=== PATIENT | male | born 1990 | race Caucasian/White ===

== ENCOUNTER 2021-04-28 01:27 | Emergency (ER) | payer OTHER ==
[2021-04-28 01:37] VITALS: TEMP 98
[2021-04-28 06:37] VITALS: BP 121/86; PULSE 64; RESP 16
--- NOTE | 2021-04-28 06:54 | ED ---
Overdose HPI - General Chief Complaint: Overdose Stated Complaint: heroin use Time Seen by Provider: 04/28/21 01:31 Source: patient, EMS Mode of arrival: EMS Limitations: no limitations - Related Data Allergies Allergy/AdvReac Type Severity Reaction Status Date / Time No Known Allergies Allergy Verified 04/28/21 01:37 Review of Systems ROS Statement: Those systems with pertinent positive or pertinent negative responses have been documented in the HPI. ROS Other: All systems not noted in ROS Statement are negative. Past Medical History Additional Past Medical History / Comment(s): Missing part of left lung History of Any Multi-Drug Resistant Organisms: None Reported Additional Past Surgical History / Comment(s): Lung Resection Left Past Psychological History: Anxiety, Depression Smoking Status: Current every day smoker Past Alcohol Use History: Rare Past Drug Use History: Heroin General Exam Limitations: no limitations Course Vital Signs 04/28/21 04/28/21 04/28/21 01:28 02:00 02:36 Temperature 98 F Pulse Rate 74 71 75 Respiratory 16 18 18 Rate Blood Pressure 126/93 132/98 114/80 O2 Sat by Pulse 99 100 100 Oximetry 04/28/21 04/28/21 04/28/21 03:36 04:36 06:37 Temperature Pulse Rate 76 69 64 Respiratory 18 18 16 Rate Blood Pressure 122/94 122/96 121/86 O2 Sat by Pulse 100 100 100 Oximetry Disposition Clinical Impression: Accidental drug overdose Disposition: HOME SELF-CARE Condition: Good Instructions (If sedation given, give patient instructions): Adult Overdose (ED) Is patient prescribed a controlled substance at d/c from ED?: No Referrals: None,Stated [Primary Care Provider] - 1-2 days
== END 2021-04-28 07:13 | disposition home or self-care (01) ==
LOC: EC 01:27
DX: T40.1X1A Poisoning by heroin, accidental (unintentional), initial encounter (principal); F32.9 Major depressive disorder, single episode, unspecified; F41.9 Anxiety disorder, unspecified; F17.200 Nicotine dependence, unspecified, uncomplicated
CPT/HCPCS: 99284

== ENCOUNTER 2021-05-13 13:03 | Emergency (ER) | payer OTHER ==
--- NOTE | 2021-05-13 13:11 | ED ---
General Adult HPI - General Stated complaint: Overdose Time Seen by Provider: 05/13/21 13:03 Source: patient, RN notes reviewed, old records reviewed - History of Present Illness Initial comments: This is a 31-year-old male who presents emergency Department after being found unresponsive in a Alley. When EMS arrived patient was able to be aroused was some mild physical stimulation. Patient was alert and oriented 3 but he did admit to a heroin. Patient states she also took methadone yesterday. Patient denies any other drug use. Patient denies any alcohol use. Patient denies any physical complaints currently patient denies headache patient denies numbness weakness. Patient denies any trauma. Patient denies any chest pain difficulty breathing shortest breath. Patient denies any recent fever chills or cough per patient denies abdominal pain. - Related Data Home Medications Medication Instructions Recorded Confirmed Buprenorphine HCl/Naloxone HCl 1 tab SL TID 05/13/21 05/13/21 [Zubsolv 5.7-1.4 mg Tablet Sl] Allergies Allergy/AdvReac Type Severity Reaction Status Date / Time No Known Allergies Allergy Verified 05/13/21 13:57 Review of Systems ROS Statement: Those systems with pertinent positive or pertinent negative responses have been documented in the HPI. ROS Other: All systems not noted in ROS Statement are negative. Past Medical History Additional Past Medical History / Comment(s): Missing part of left lung History of Any Multi-Drug Resistant Organisms: None Reported Additional Past Surgical History / Comment(s): Lung Resection Left Past Psychological History: Anxiety, Depression Smoking Status: Current every day smoker Past Alcohol Use History: Rare Past Drug Use History: Heroin General Exam - General Exam Comments Initial Comments: GENERAL: Patient is well-developed and well-nourished. Patient is nontoxic and well- hydrated and is in no acute distress. Patient's tired but easily arousable and answers all questions accurately ENT: Neck is soft and supple. No significant lymphadenopathy is noted. Oropharynx is clear. Moist mucous membranes. Neck has full range of motion without eliciting any pain. EYES: The sclera were anicteric and conjunctiva were pink and moist. Extraocular movements were intact and pupils were equal round and reactive to light. Eyelids were unremarkable. PULMONARY: Unlabored respirations. Good breath sounds bilaterally. No audible rales rhon chi or wheezing was noted. CARDIOVASCULAR: There is a regular rate and rhythm without any murmurs gallops or rubs. ABDOMEN: Soft and nontender with normal bowel sounds. SKIN: Skin is clear with no lesions or rashes and otherwise unremarkable. NEUROLOGIC: Patient is alert and oriented x3. Cranial nerves II through XII are grossly intact. Motor and sensory are also intact. Normal speech, volume and content. Symmetrical smile. MUSCULOSKELETAL: Normal extremities with adequate strength and full range of motion. LYMPHATICS: No significant lymphadenopathy is noted PSYCHIATRIC: Normal psychiatric evaluation. Course Vital Signs 05/13/21 05/13/21 05/13/21 13:08 13:14 13:30 Temperature 97.8 F Pulse Rate 77 92 67 Respiratory 16 14 9 L Rate Blood Pressure 124/93 124/93 O2 Sat by Pulse 97 98 97 Oximetry 05/13/21 05/13/21 14:00 16:18 Temperature Pulse Rate 75 78 Respiratory 11 L 16 Rate Blood Pressure 130/81 122/93 O2 Sat by Pulse 98 98 Oximetry Medical Decision Making - Medical Decision Making Patient's drug screen came back and it was positive for methadone and opiates methamphetamine. Patient was alert and oriented 4 the whole time in the emergency department and he insisted he did not do any methadone today he did that yesterday. - Lab Data Lab Results 05/13/21 Range/Units 15:47 Urine Opiates Screen Detected H (NotDetected) Ur Oxycodone Screen Not Detected (NotDetected) Urine Methadone Screen Detected H (NotDetected) Ur Propoxyphene Screen Not Detected (NotDetected) Ur Barbiturates Screen Not Detected (NotDetected) U Tricyclic Antidepress Not Detected (NotDetected) Ur Phencyclidine Scrn Not Detected (NotDetected) Ur Amphetamines Screen Detected H (NotDetected) U Methamphetamines Scrn Detected H (NotDetected) U Benzodiazepines Scrn Not Detected (NotDetected) Urine Cocaine Screen Detected H (NotDetected) U Marijuana (THC) Screen Detected H (NotDetected) Disposition Clinical Impression: Methamphetamine abuse, Opiate overdose Disposition: Left Against Medical Advice Is patient prescribed a controlled substance at d/c from ED?: No Referrals: None,Stated [Primary Care Provider] - 1-2 days Time of Disposition: 16:27
[2021-05-13 13:12] VITALS: TEMP 97.8
[2021-05-13 16:13] LABS: Amphetamine Screen,Urine Detected (NotDetected); Barbiturate Screen,Urine Not Detected (NotDetected); Benzodiazepines Screen,Urine Not Detected (NotDetected); Cocaine Screen,Urine Detected (NotDetected); Methadone Screen, Urine Detected (NotDetected); Opiate Screen,Urine Detected (NotDetected); Oxycodone Screen, Urine Not Detected (NotDetected); Phencyclidine Screen,Urine Not Detected (NotDetected); Tricyclic Antidepressant,Urine Not Detected (NotDetected); Urn Cannabinoid Scrn Detected (NotDetected)
[2021-05-13 16:20] VITALS: BP 122/93; PULSE 78; RESP 16
== END 2021-05-13 16:20 | disposition left against medical advice (07) ==
LOC: EC 13:03
DX: T40.601A Poisoning by unspecified narcotics, accidental (unintentional), initial encounter (principal); F15.10 Other stimulant abuse, uncomplicated; F17.200 Nicotine dependence, unspecified, uncomplicated
CPT/HCPCS: 80306; 82075; 99284

== ENCOUNTER 2021-06-11 07:14 | Emergency (ER) | payer OTHER ==
--- NOTE | 2021-06-11 07:38 | ED ---
General Adult HPI - General Chief complaint: Fall Stated complaint: lethargic Time Seen by Provider: 06/11/21 07:15 Source: patient, EMS, RN notes reviewed, old records reviewed Mode of arrival: EMS - History of Present Illness Initial comments: This is a 31-year-old male who is a heroin addict. Patient was found in the yard this morning with no complaints other than a little scalp tenderness. Patient states he thinks he might a fall and but he doesn't remember. Patient denies any neck pain patient denies numbness weakness. Patient is chest pain difficulty breathing shortness of breath per patient abdominal pain. Patient denies any recent fever chills or cough per patient denies any nausea vomiting. Patient states the last time he did heroin was somewhere around midnight last night - Related Data Home Medications Medication Instructions Recorded Confirmed No Known Home Medications 06/11/21 06/11/21 Allergies Allergy/AdvReac Type Severity Reaction Status Date / Time No Known Allergies Allergy Verified 06/11/21 08:23 Review of Systems ROS Statement: Those systems with pertinent positive or pertinent negative responses have been documented in the HPI. ROS Other: All systems not noted in ROS Statement are negative. 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 Organisms: None Reported Past Surgical History: No Surgical Hx Reported Additional Past Surgical History / Comment(s): Lung Resection Left Past Psychological History: Anxiety, Depression Smoking Status: Current every day smoker Past Alcohol Use History: Rare Past Drug Use History: Heroin General Exam - General Exam Comments Initial Comments: GENERAL: Patient is well-developed and well-nourished. Patient is nontoxic and well- hydrated and is in no acute distress. Patient has a area on his scalp is mildly tender. There is a superficial abrasion on the right lateral aspect of his forehead ENT: Neck is soft and supple. No significant lymphadenopathy is noted. Oropharynx is clear. Moist mucous membranes. Neck has full range of motion without eliciting any pain. EYES: The sclera were anicteric and conjunctiva were pink and moist. Extraocular movements were intact and pupils were equal round and reactive to light. Eyelids were unremarkable. PULMONARY: Unlabored respirations. Good breath sounds bilaterally. No audible rales rhonchi or wheezing was noted. CARDIOVASCULAR: There is a regular rate and rhythm without any murmurs gallops or rubs. ABDOMEN: Soft and nontender with normal bowel sounds. No palpable organomegaly was noted. There is no palpable pulsatile mass. SKIN: Skin is clear with no lesions or rashes and otherwise unremarkable. NEUROLOGIC: Patient is alert and oriented x3. Cranial nerves II through XII are grossly intact. Motor and sensory are also intact. Normal speech, volume and content. Symmetrical smile. MUSCULOSKELETAL: Normal extremities with adequate strength and full range of motion. LYMPHATICS: No significant lymphadenopathy is noted PSYCHIATRIC: Normal psychiatric evaluation. Course Vital Signs 06/11/21 06/11/21 07:15 08:06 Temperature 97.8 F Pulse Rate 68 75 Respiratory 16 18 Rate Blood Pressure 125/86 127/92 O2 Sat by Pulse 98 98 Oximetry Medical Decision Making - Medical Decision Making CT brain and C-spine are both normal. Patient was eating a sandwich and he was alert and oriented 3 who is very tired. Disposition Clinical Impression: Fall, Scalp contusion, Fall, Heroin abuse Disposition: HOME SELF-CARE Condition: Good Instructions (If sedation given, give patient instructions): Fall Prevention (ED), Opioid Use Disorder (ED) Is patient prescribed a controlled substance at d/c from ED?: No Referrals: None,Stated [Primary Care Provider] - 1-2 days Time of Disposition: 09:55
--- NOTE | 2021-06-11 07:57 | CT ---
EXAMINATION TYPE: CT brain gina donato DATE OF EXAM: 06/11/2021 COMPARISON: None HISTORY: Trauma? Possible fall. Altered mental status. Poor historian. CT DLP: 1180.[address] Brain: Unenhanced CT of the brain was performed. The ventricles, basal cisterns and sulci overlying the cerebral convexities demonstrate a normal appe arance. There is no evidence for intracranial hemorrhage or sulcal effacement. No mass effects are seen. If symptoms persist consider MRI. Osseous calvarium is intact. IMPRESSION: No acute intracranial process CT Cervical Spine: Unenhanced CT of the cervical spine was performed with bone and soft tissue window settings submitted . Coronal and sagittal reconstruction is obtained. There is normal alignment and prevertebral soft tissues. I do not see evidence for fracture or sublu xation. No significant degenerative changes are present. The lung apices are clear. IMPRESSION: No evidence for acute fracture or subluxation of the cervical spine.
[2021-06-11 10:31] VITALS: BP 133/94; PULSE 70; RESP 20; TEMP 98.6
== END 2021-06-11 10:31 | disposition home or self-care (01) ==
LOC: EC 07:14
DX: S00.03XA Contusion of scalp, initial encounter (principal); F11.10 Opioid abuse, uncomplicated; F17.200 Nicotine dependence, unspecified, uncomplicated; F41.9 Anxiety disorder, unspecified; F32.9 Major depressive disorder, single episode, unspecified; W19.XXXA Unspecified fall, initial encounter
CPT/HCPCS: 70450; 72125; 99285

== ENCOUNTER 2021-07-02 19:26 | Observation (INO) | payer OTHER ==
[2021-07-02] MEDS ORDERED: VANCOMYCIN 1,250 MG in SODIUM CHLORIDE 0.9% 250 ML IVPB STA (19:47)
--- NOTE | 2021-07-02 19:53 | ED ---
General Adult HPI - General Source: patient, EMS, RN notes reviewed, old records reviewed Mode of arrival: EMS <Danis Welsh - Last Filed: 07/02/21 20:44> <Danis Emerson - Last Filed: 07/03/21 00:44> - General Chief complaint: Recheck/Abnormal Lab/Rx Stated complaint: Overdose Time Seen by Provider: 07/02/21 19:30 - History of Present Illness Initial comments: This is a 31-year-old male who is brought in by EMS after police found him nearly unresponsive. When they got to him he was able to answer a few questions though he was significantly obtunded his eyes were pinpoint but he did admit to doing heroin. Because patient was still able to respond and his vitals are stable Narcan was not given to the patient. Patient is able to answer all of my cautions currently has no complaints he does state he has 2 sores on one on each hand on the dorsal aspect patient states he's had before and they usually just go away. I told the patient he might have to stay to get antibiotics he stated he would not stay overnight. Patient denied any headache patient denies chest pain patient difficulty breathing shortest breath per patient denied any nausea vomiting. Patient denies fever chills or cough. (Danis Welsh) - Related Data Previous Rx's Medication Instructions Recorded Cephalexin [Keflex] 500 mg PO Q6HR #28 cap 07/02/21 Sulfamethox-Tmp 800-160Mg [Bactrim 1 each PO Q12HR #20 tab 07/02/21 DS 800-160 mg] Allergies Allergy/AdvReac Type Severity Reaction Status Date / Time No Known Allergies Allergy Verified 07/02/21 22:52 Review of Systems ROS Other: All systems not noted in ROS Statement are negative. <Danis Welsh - Last Filed: 07/02/21 20:44> ROS Other: All systems not noted in ROS Statement are negative. <Danis Emerson - Last Filed: 07/03/21 00:44> ROS Statement: Those systems with pertinent positive or pertinent negative responses have been documented in the HPI. 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 Organisms: None Reported Past Surgical History: No Surgical Hx Reported Additional Past Surgical History / Comment(s): Lung Resection Left Past Psychological History: Anxiety, Depression Smoking Status: Current every day smoker Past Alcohol Use History: Rare Past Drug Use History: Heroin <Danis Welsh - Last Filed: 07/02/21 20:44> General Exam <Danis Welsh - Last Filed: 07/02/21 20:44> General appearance: alert, in no apparent distress Head exam: Present: atraumatic, normocephalic, normal inspection Eye exam: Present: normal appearance, PERRL, EOMI. Absent: scleral icterus, conjunctival injection, periorbital swelling ENT exam: Present: normal exam, mucous membranes moist Neck exam: Present: normal inspection. Absent: tenderness, meningismus, lymphadenopathy Respiratory exam: Present: normal lung sounds bilaterally. Absent: respiratory distress, wheezes, rales, rhonchi, stridor Cardiovascular Exam: Present: regular rate, normal rhythm, normal heart sounds. Absent: systolic murmur, diastolic murmur, rubs, gallop, clicks GI/Abdominal exam: Present: soft, normal bowel sounds. Absent: distended, tende rness, guarding, rebound, rigid Extremities exam: Present: normal inspection, full ROM, normal capillary refill. Absent: tenderness, pedal edema, joint swelling, calf tenderness Back exam: Present: normal inspection Neurological exam: Present: alert, oriented X3, CN II-XII intact Psychiatric exam: Present: normal affect, normal mood Skin exam: Present: warm, dry, intact, normal color. Absent: rash <Danis Emerson - Last Filed: 07/03/21 00:44> - General Exam Comments Initial Comments: GENERAL: Patient is well-developed and well-nourished. Patient is nontoxic and well- hydrated and is in no acute distress. Patient is lethargic but arousable. Patient is able to answer all questions accurately but he falls right to sleep when he stopped talking to him. ENT: Neck is soft and supple. No significant lymphadenopathy is noted. Oropharynx is clear. Moist mucous membranes. Neck has full range of motion without eliciting any pain. EYES: The sclera were anicteric and conjunctiva were pink and moist. Extraocular movements were intact and pupils 2+ were pinpoint. Eyelids were unremarkable. PULMONARY: Unlabored respirations. Good breath sounds bilaterally. No audible rales rhonchi or wheezing was noted. CARDIOVASCULAR: There is a regular rate and rhythm without any murmurs gallops or rubs. ABDOMEN: Soft and nontender with normal bowel sounds. SKIN: Patient has abscesses on the dorsal aspect of both hands both of which are draining I expressed a large amount of pus on the left hand and only a minimal amount on the right and they were cultured. NEUROLOGIC: Patient is alert and oriented x3. Cranial nerves II through XII are grossly intact. Motor and sensory are also intact. Normal speech, volume and content. Symmetrical smile. MUSCULOSKELETAL: Normal extremities with adequate strength and full range of motion. LYMPHATICS: No significant lymphadenopathy is noted PSYCHIATRIC: Normal psychiatric evaluation. (Danis Welsh) Course <Danis Emerson - Last Filed: 07/03/21 00:44> Vital Signs 07/02/21 07/02/21 07/02/21 19:31 20:37 22:02 Temperature 97.4 F L Pulse Rate 96 75 72 Respiratory 18 18 16 Rate Blood Pressure 118/80 109/83 117/89 O2 Sat by Pulse 100 99 99 Oximetry - Reevaluation(s) Reevaluation #1: 07/03/21 00:43 Record is reviewed (Danis Emerson) Medical Decision Making - Lab Data Result diagrams: 07/02/21 20:19 <Danis Welsh - Last Filed: 07/02/21 20:44> - Lab Data Result diagrams: 07/02/21 20:19 07/02/21 20:19 <Danis Emerson - Last Filed: 07/03/21 00:44> - Medical Decision Making I expressed quite a bit of pus from old the left hand abscess I cultured that. I also expressed a little pus from the right hand abscess culture that as well. I ordered a gram of vancomycin EKG shows normal sinus rhythm at 80 bpm SC interval 242 QRS is 110 QT interval 372 QTC is 429. Patient's EKG shows no ST segment elevation or depression. Patient has 2 abscesses in bilateral hands I recommended after the vancomycin that he stated again he states he will take the vancomycin but he refuses to stay. (Danis Welsh) 31 male to be admitted for persistent multiple abscesses and cellulitis, all abscesses have been excised, patient is in remains arousable yet persistently unresponsive, will admit for antibiotics and monitoring (Danis Emerson) - Lab Data Lab Results 07/02/21 07/02/21 07/02/21 Range/Units 20:19 20:19 20:19 WBC 8.5 (3.8-10.6) k/uL RBC 4.29 L (4.30-5.90) m/uL Hgb 13.0 (13.0-17.5) gm/dL Hct 37.6 L (39.0-53.0) % MCV 87.6 (80.0-100.0) fL MCH 30.4 (25.0-35.0) pg MCHC 34.7 (31.0-37.0) g/dL RDW 12.4 (11.5-15.5) % Plt Count 316 (150-450) k/uL MPV 7.0 Neutrophils % 52 % Lymphocytes % 34 % Monocytes % 7 % Eosinophils % 3 % Basophils % 1 % Neutrophils # 4.4 (1.3-7.7) k/uL Lymphocytes # 2.9 (1.0-4.8) k/uL Monocytes # 0.6 (0-1.0) k/uL Eosinophils # 0.3 (0-0.7) k/uL Basophils # 0.1 (0-0.2) k/uL Sodium 135 L (137-145) mmol/L Potassium 4.0 (3.5-5.1) mmol/L Chloride 99 (98-107) mmol/L Carbon Dioxide 29 (22-30) mmol/L Anion Gap 7 mmol/L BUN 18 (9-20) mg/dL Creatinine 0.57 L (0.66-1.25) mg/dL Est GFR (CKD-EPI)AfAm >90 (>60 ml/min/1.73 sqM) Est GFR (CKD-EPI)NonAf >90 (>60 ml/min/1.73 sqM) Glucose 108 H (74-99) mg/dL Plasma Lactic Acid Lon 0.9 (0.7-2.0) mmol/L Calcium 8.8 (8.4-10.2) mg/dL Total Bilirubin 0.6 (0.2-1.3) mg/dL AST 133 H (17-59) U/L ALT 134 H (4-49) U/L Alkaline Phosphatase 126 (38-126) U/L Total Protein 7.2 (6.3-8.2) g/dL Albumin 3.5 (3.5-5.0) g/dL Disposition Is patient prescribed a controlled substance at d/c from ED?: No Time of Disposition: 20:45 <Danis Welsh - Last Filed: 07/02/21 20:44> Is patient prescribed a controlled substance at d/c from ED?: No <Danis Emerson - Last Filed: 07/03/21 00:44> Clinical Impression: Heroin abuse, Abscess of hand, left, Abscess of hand, right Disposition: ADMITTED IP TO THIS HOSP Condition: Fair
[2021-07-02] MEDS: SODIUM CHLORIDE 0.9% 500 ML 500 ML IV SCH ×2 (20:31→20:32)
[2021-07-02 20:39] LABS: Basophils # (A) 0.1 k/uL (0-0.2); Basophils % (A) 1 %; Eosinophils # (A) 0.3 k/uL (0-0.7); Eosinophils % (A) 3 %; HCT 37.6 % (39.0-53.0); Lymphocytes # (A) 2.9 k/uL (1.0-4.8); Lymphocytes % (A) 34 %; MCH 30.4 pg (25.0-35.0); MCHC 34.7 g/dL (31.0-37.0); MCV 87.6 fL (80.0-100.0); Monocytes # (A) 0.6 k/uL (0-1.0); Monocytes % (A) 7 %; Neutrophils # (A) 4.4 k/uL (1.3-7.7); Neutrophils % (A) 52 %; Platelet Count 316 k/uL (150-450); RBC 4.29 m/uL (4.30-5.90); RDW 12.4 % (11.5-15.5); WBC 8.5 k/uL (3.8-10.6)
[2021-07-02 20:48] LABS: ALT 134 U/L (4-49); AST 133 U/L (17-59); African American GFR (CKD) >90 (>60 ml/min/1.73 sqM); Albumin 3.5 g/dL (3.5-5.0); Alkaline Phosphatase 126 U/L (38-126); Anion Gap 7 mmol/L; Blood Urea Nitrogen 18 mg/dL (9-20); Calcium 8.8 mg/dL (8.4-10.2); Carbon Dioxide 29 mmol/L (22-30); Chloride 99 mmol/L (98-107); Glucose 108 mg/dL (74-99); Non-African American GFR(CKD) >90 (>60 ml/min/1.73 sqM); Sodium 135 mmol/L (137-145); Total Bilirubin 0.6 mg/dL (0.2-1.3); Total Protein 7.2 g/dL (6.3-8.2)
[2021-07-02 22:03] VITALS: RESP 16
[2021-07-02] MEDS ORDERED: ONDANSETRON 4 MG/2 ML VIAL IVP PRN (22:30)
[2021-07-02] MEDS ORDERED: SODIUM CHLORIDE 0.9% 1,000 ML IV SCH (22:30)
[2021-07-02] MEDS ORDERED: MORPHINE SULFATE 4 MG/ML SYRINGE IV PRN (22:30)
[2021-07-02] MEDS ORDERED: NALOXONE 0.4 MG/ML 1 ML VIAL IV PRN (22:30)
[2021-07-03 00:33] VITALS: TEMP 97.5
[2021-07-03] MEDS: VANCOMYCIN 1,000 MG in SODIUM CHLORIDE 0.9% 250 ML IVPB SCH ×2 (04:32→07:22)
[2021-07-03 07:27] VITALS: BP 115/80; PULSE 79
[2021-07-03] MEDS ORDERED: PANTOPRAZOLE 40 MG/10 ML VIAL IV SCH (09:00)
[2021-07-03] MEDS ORDERED: VANCOMYCIN 1,000 MG in SODIUM CHLORIDE 0.9% 250 ML IVPB SCH (16:00)
[2021-07-04] MEDS ORDERED: VANCOMYCIN TROUGH DUE 1 EACH MISC MISCELLANE ONE (07:00)
--- NOTE | 2021-07-07 17:14 | HP ---
HISTORY AND PHYSICAL COMBINED HISTORY AND PHYSICAL AND DISCHARGE SUMMARY: CHIEF COMPLAINT: Overdose. HISTORY OF PRESENT ILLNESS: This 31-year-old gentleman who was admitted with heroin overdose was being closely monitored, but the patient left the hospital AGAINST MEDICAL ADVICE in the ER itself. Please refer to the ER note, physician's notes and staff notes for further information. Prognosis extremely guarded. MMODL / IJN: [id number] /
== END 2021-07-03 09:17 | disposition left against medical advice (07) ==
LOC: EC 19:26 → 4SSUR 22:31
PROVIDERS: ADMIT Hospitalist; ATTEND Hospitalist
DX: T40.1X1A Poisoning by heroin, accidental (unintentional), initial encounter (principal); F11.10 Opioid abuse, uncomplicated; L02.512 Cutaneous abscess of left hand; L02.511 Cutaneous abscess of right hand; Z53.20 Procedure and treatment not carried out because of patient's decision for unspecified reasons; Z53.29 Procedure and treatment not carried out because of patient's decision for other reasons; L03.114 Cellulitis of left upper limb; L03.113 Cellulitis of right upper limb; F41.9 Anxiety disorder, unspecified; F32.9 Major depressive disorder, single episode, unspecified; F17.200 Nicotine dependence, unspecified, uncomplicated; Z20.822 Contact with and (suspected) exposure to COVID-19; Z90.2 Acquired absence of lung [part of]
CPT/HCPCS: 96375; 96365; 96366; 99285; 10060; 36415; 93005; 80053; 83605; 85025; 87040; 87070; 87205; 87077; 87186; 87635; G0378 ×2; J3370 ×2; C9113

== ENCOUNTER 2021-08-09 23:42 | Emergency (ER) | payer OTHER ==
[2021-08-10] MEDS ORDERED: SODIUM CHLORIDE 0.9% 1,000 ML IV STA (00:40)
--- NOTE | 2021-08-10 00:40 | ED ---
Abdominal Pain HPI - General Chief Complaint: Abdominal Pain Stated Complaint: Abd Pain Time Seen by Provider: 08/09/21 23:57 Source: EMS, RN notes reviewed, old records reviewed Mode of arrival: EMS Limitations: no limitations - History of Present Illness Initial Comments: This is a 31-year-old male to the emergency department today. Patient is known to our ER for some psychiatric illness and drug abuse history. Patient presented for right lower quadrant abdominal pain today severe. Patient has no travel history no sick contacts no other complaints. Patient states is not currently feel well sent into his right-sided abdominal pain. Patient is weak and difficult to arouse likely from personal induced opiates. Patient is arousable known still complains of pain. MD Complaint: abdominal pain (Right lower quadrant) -: hour(s) Location: RLQ Radiation: RLQ Migration to: no migration Severity: moderate Severity scale (1-10): 4 Quality: stabbing, aching Consistency: intermittent Improves With: nothing Worsens With: nothing Associated Symptoms: nausea Treatments Prior to Arrival: other (none) - Related Data Previous Rx's Medication Instructions Recorded Cephalexin [Keflex] 500 mg PO Q6HR #28 cap 07/02/21 Sulfamethox-Tmp 800-160Mg [Bactrim 1 each PO Q12HR #20 tab 07/02/21 DS 800-160 mg] Allergies Allergy/AdvReac Type Severity Reaction Status Date / Time No Known Allergies Allergy Verified 08/10/21 00:23 Review of Systems ROS Statement: Those systems with pertinent positive or pertinent negative responses have been documented in the HPI. ROS Other: All systems not noted in ROS Statement are negative. 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 Organisms: MRSA Date of last positivie culture/infection: 07/02/21 MDRO Source:: MRSA HAND Past Surgical History: No Surgical Hx Reported Additional Past Surgical History / Comment(s): Lung Resection Left Past Anesthesia/Blood Transfusion Reactions: No Reported Reaction Past Psychological History: Anxiety, Depression Smoking Status: Current every day smoker Past Alcohol Use History: Rare Past Drug Use History: Heroin, Marijuana General Exam Limitations: no limitations General appearance: alert, in no apparent distress Head exam: Present: atraumatic, normocephalic, normal inspection Eye exam: Present: normal appearance, PERRL, EOMI. Absent: scleral icterus, conjunctival injection, periorbital swelling ENT exam: Present: normal exam, mucous membranes moist Neck exam: Present: normal inspection, tenderness. Absent: meningismus, lymphadenopathy Respiratory exam: Present: normal lung sounds bilaterally. Absent: respiratory distress, wheezes, rales, rhonchi, stridor Cardiovascular Exam: Present: regular rate, normal rhythm, normal heart sounds. Absent: systolic murmur, diastolic murmur, rubs, gallop, clicks GI/Abdominal exam: Present: soft, tenderness (Right lower quadrant), normal bowel sounds. Absent: distended, guarding, rebound, rigid Extremities exam: Present: normal inspection, full ROM, normal capillary refill. Absent: tenderness, pedal edema, joint swelling, calf tenderness Back exam: Present: normal inspection Neurological exam: Present: alert, oriented X3, CN II-XII intact Psychiatric exam: Present: normal affect, normal mood Skin exam: Present: warm, dry, intact, normal color. Absent: rash Course Vital Signs 08/10/21 00:20 Temperature 98.4 F Pulse Rate 96 Respiratory 18 Rate Blood Pressure 107/71 O2 Sat by Pulse 97 Oximetry - Reevaluation(s) Reevaluation #1: 08/10/21 01:33 Medical record is reviewed Reevaluation #2: 08/10/21 01:33 Cannot give patient pain medication secondary to his personally induced narcosis state Reevaluation #3: 08/10/21 02:33 Patient informed of results and questions are answered Medical Decision Making - Medical Decision Making 31 male to the emergency department with abdominal pain. Labwork as well as computed tomography scan is negative patient can be discharged home - Radiology Data Radiology results: report reviewed (CT abdomen and pelvis is negative for acute disease), image reviewed Disposition Clinical Impression: Abdominal pain Disposition: HOME SELF-CARE Condition: Fair Instructions (If sedation given, give patient instructions): Abdominal Pain (ED) Is patient prescribed a controlled substance at d/c from ED?: No Referrals: None,Stated [Primary Care Provider] - 1-2 days
[2021-08-10 01:31] LABS: Basophils # (A) 0.1 k/uL (0-0.2); Basophils % (A) 1 %; Eosinophils # (A) 0.5 k/uL (0-0.7); Eosinophils % (A) 3 %; HCT 37.5 % (39.0-53.0); HGB 12.5 gm/dL (13.0-17.5); Lymphocytes # (A) 2.8 k/uL (1.0-4.8); Lymphocytes % (A) 20 %; MCH 28.9 pg (25.0-35.0); MCHC 33.3 g/dL (31.0-37.0); MCV 86.7 fL (80.0-100.0); Mean Platelet Volume 7.5; Monocytes # (A) 0.9 k/uL (0-1.0); Monocytes % (A) 7 %; Neutrophils # (A) 9.6 k/uL (1.3-7.7); Neutrophils % (A) 69 %; Platelet Count 444 k/uL (150-450); RBC 4.32 m/uL (4.30-5.90); RDW 12.3 % (11.5-15.5); WBC 14.1 k/uL (3.8-10.6)
[2021-08-10 01:43] LABS: ALT 36 U/L (4-49); AST 43 U/L (17-59); African American GFR (CKD) >90 (>60 ml/min/1.73 sqM); Albumin 3.1 g/dL (3.5-5.0); Alkaline Phosphatase 87 U/L (38-126); Amylase 51 U/L (30-110); Anion Gap 8 mmol/L; Blood Urea Nitrogen 15 mg/dL (9-20); Calcium 8.9 mg/dL (8.4-10.2); Carbon Dioxide 29 mmol/L (22-30); Chloride 94 mmol/L (98-107); Glucose 130 mg/dL (74-99); Lipase 16 U/L (23-300); Non-African American GFR(CKD) >90 (>60 ml/min/1.73 sqM); Potassium 4.4 mmol/L (3.5-5.1); Sodium 131 mmol/L (137-145); Total Bilirubin 0.3 mg/dL (0.2-1.3)
--- NOTE | 2021-08-10 01:48 | CT ---
EXAMINATION TYPE: CT abdomen pelvis w con DATE OF EXAM: 08/10/2021 COMPARISON: None HISTORY: right upper abdominal pain x 1 day. no prior on PACS. CT DLP: 582.9 mGycm Automated exposure control for dose reduction was used. CONTRAST: Performed with IV Contrast, patient injected with 100ml mL of Isovue 300. Images obtained from the diaphragm to the floor the pelvis with IV contrast. There is some infiltrate and atelectasis in the right middle lobe. There is a minimal atelectasis lef t posterior lung base. Heart size is normal. There is no pleural effusion. There is no pericardial ef fusion. Liver is intact. Gallbladder is intact. There is no pancreatic mass. Stomach is intact. Spleen is int act. The bile ducts are not dilated. There is no adrenal mass. Kidneys show satisfactory contrast opacification. There is no hydronephrosi s. Delayed images show normal renal excretion. There is no retroperitoneal adenopathy. Bladder disten ds smoothly. There is no inguinal hernia. There is no free fluid in the pelvis. There is no mesenteric edema. There is no ascites or free air. Appendix is posterior and appears norm al. There is a large terminal ileum with fecal material. Terminal ileum measures 2.5 cm. I see no obs tructing lesion. The lumbar vertebra have normal alignment. Posterior elements are intact. There is no compression fra cture. Bony pelvis is intact. The hip joints are intact. IMPRESSION: There is some pneumonia and atelectasis in the right middle lobe and left lower lobe. Small calcifica tions in the left lower lobe consistent with scarring and old granulomatous disease. Normal appendix. Distended distal ileum probably related to some degree of constipation.
[2021-08-10] MEDS ORDERED: cefTRIAXone IN SWFI 1,000 MG/10 ML SYRINGE IVP STA (02:34)
[2021-08-10] MEDS ORDERED: AZITHROMYCIN 500 MG in SODIUM CHLORIDE 0.9% 250 ML IVPB STA (02:34)
--- NOTE | 2021-08-10 02:36 | ED ---
Medical Decision Making - Medical Decision Making 31 male is found to have possible pneumonia on computed tomography scan, x-ray reveals pneumonia with leukocytosis. Patient be started on antibiotics here in the ER and then discharged home on antibiotics for treatment of pneumonia - Lab Data Result diagrams: 08/10/21 01:09 08/10/21 01:09 Lab Results 08/10/21 08/10/21 Range/Units 01:09 01:09 WBC 14.1 H (3.8-10.6) k/uL RBC 4.32 (4.30-5.90) m/uL Hgb 12.5 L (13.0-17.5) gm/dL Hct 37.5 L (39.0-53.0) % MCV 86.7 (80.0-100.0) fL MCH 28.9 (25.0-35.0) pg MCHC 33.3 (31.0-37.0) g/dL RDW 12.3 (11.5-15.5) % Plt Count 444 (150-450) k/uL MPV 7.5 Neutrophils % 69 % Lymphocytes % 20 % Monocytes % 7 % Eosinophils % 3 % Basophils % 1 % Neutrophils # 9.6 H (1.3-7.7) k/uL Lymphocytes # 2.8 (1.0-4.8) k/uL Monocytes # 0.9 (0-1.0) k/uL Eosinophils # 0.5 (0-0.7) k/uL Basophils # 0.1 (0-0.2) k/uL Sodium 131 L (137-145) mmol/L Potassium 4.4 (3.5-5.1) mmol/L Chloride 94 L (98-107) mmol/L Carbon Dioxide 29 (22-30) mmol/L Anion Gap 8 mmol/L BUN 15 (9-20) mg/dL Creatinine 0.46 L (0.66-1.25) mg/dL Est GFR (CKD-EPI)AfAm >90 (>60 ml/min/1.73 sqM) Est GFR (CKD-EPI)NonAf >90 (>60 ml/min/1.73 sqM) Glucose 130 H (74-99) mg/dL Calcium 8.9 (8.4-10.2) mg/dL Total Bilirubin 0.3 (0.2-1.3) mg/dL AST 43 (17-59) U/L ALT 36 (4-49) U/L Alkaline Phosphatase 87 (38-126) U/L Total Protein 7.0 (6.3-8.2) g/dL Albumin 3.1 L (3.5-5.0) g/dL Amylase 51 (30-110) U/L Lipase 16 L (23-300) U/L - Radiology Data Radiology results: report reviewed (Chest x-ray is positive for pneumonia), image reviewed Disposition Clinical Impression: Abdominal pain, Pneumonia, Leukocytosis Disposition: HOME SELF-CARE Condition: Fair Instructions (If sedation given, give patient instructions): Abdominal Pain (ED), Community Acquired Pneumonia (ED) Is patient prescribed a controlled substance at d/c from ED?: No Referrals: None,Stated [Primary Care Provider] - 1-2 days
--- NOTE | 2021-08-10 03:11 | XR ---
EXAMINATION TYPE: XR chest 1V DATE OF EXAM: 08/10/2021 COMPARISON: NONE HISTORY: Short of breath TECHNIQUE: Single view FINDINGS: There is some airspace infiltrate right lower lobe. There is no heart failure. Heart size i s normal. There are no hilar masses. Bony thorax is intact. Costophrenic angles are fairly clear. The re is some mild linear density medial left lower lobe behind the heart. IMPRESSION: Bilateral lower lobe airspace infiltrate and atelectasis. Normal heart. No heart failure. .
[2021-08-10 04:04] VITALS: RESP 16
[2021-08-10 04:11] VITALS: BP 116/80; PULSE 80; TEMP 97.7
[2021-08-10] MEDS ORDERED: SENNOSIDES-DOCUSATE SODIUM 1 EACH TAB PO STA (05:54)
[2021-08-10] MEDS ORDERED: GLYCERIN ADULT SUPPOSITORY 1 EACH RECTAL STA (05:54)
[2021-08-10] MEDS ORDERED: NALOXONE 0.4 MG/ML 1 ML VIAL IM STA ×3 (06:56→06:58)
== END 2021-08-10 07:18 | disposition home or self-care (01) ==
LOC: EC 23:42
DX: R10.31 Right lower quadrant pain (principal); J18.9 Pneumonia, unspecified organism; D72.829 Elevated white blood cell count, unspecified; F17.200 Nicotine dependence, unspecified, uncomplicated; F12.90 Cannabis use, unspecified, uncomplicated; F11.90 Opioid use, unspecified, uncomplicated
CPT/HCPCS: 36415; 80053; 82150; 83690; 85025; 71045; 74177; 96365; 96375; 96361; 96372; 99285; J2310; J0456; J0696; Q9967; 99284

== ENCOUNTER 2023-08-19 17:37 | Emergency (ER) | payer OTHER ==
[2023-08-19 18:44] VITALS: RESP 18; TEMP 98.1
--- NOTE | 2023-08-19 20:06 | ED ---
ENT HPI - General Chief complaint: Dental/Oral Stated complaint: right side mouth pain Time Seen by Provider: 08/19/23 19:02 Source: patient Mode of arrival: ambulatory Limitations: no limitations - History of Present Illness Initial comments: 33-year-old male with no significant past medical history presenting to the ED with a chief complaint of dental pain. Patient reports waxing and waning dental pain the last few months. Patient does not follow with a dentist and notes he has been unable to get into one. States for the past week has had worsening right upper dental pain. Denies fever. Denies chills. Denies facial swelling. Denies difficulty swallowing. Denies difficulties breathing. He has been taking ibuprofen 200s and reports that they help for a little bit however does not completely help with the pain. Denies chest pain or shortness of breath. No other complaints. - Related Data Previous Rx's Medication Instructions Recorded Cephalexin [Keflex] 500 mg PO Q6HR #28 cap 07/02/21 Sulfamethox-Tmp 800-160Mg [Bactrim 1 each PO Q12HR #20 tab 07/02/21 DS 800-160 mg] Azithromycin [Zithromax Z-pack (6 0 mg PO DIRECTED #1 packet 08/10/21 tabs)] Cefdinir 300 mg PO Q12HR #14 cap 08/10/21 Amoxic-Pot Clav 875-125Mg 1 tab PO Q12HR 7 Days #14 tab 08/19/23 [Augmentin 875-125] Ibuprofen 800 mg PO Q8H #30 tab 08/19/23 Allergies Allergy/AdvReac Type Severity Reaction Status Date / Time No Known Allergies Allergy Verified 08/19/23 18:38 Review of Systems ROS Statement: Those systems with pertinent positive or pertinent negative responses have been documented in the HPI. ROS Other: All systems not noted in ROS Statement are negative. 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 Organisms: MRSA Date of last positivie culture/infection: 07/02/21 MDRO Source:: MRSA HAND Past Surgical History: No Surgical Hx Reported Additional Past Surgical History / Comment(s): Lung Resection Left Past Anesthesia/Blood Transfusion Reactions: No Reported Reaction Past Psychological History: Anxiety, Depression Smoking Status: Current every day smoker Past Alcohol Use History: Rare Past Drug Use History: Heroin, Marijuana General Exam Limitations: no limitations General appearance: alert, in no apparent distress ENT exam: Present: other (Poor dentition. Multiple dental caries. Dental Marcy noted were patient notes pain with no evidence of surrounding abscess. No significant cervical lymphadenopathy. No significant oropharyngeal swelling.) Respiratory exam: Present: normal lung sounds bilaterally Cardiovascular Exam: Present: regular rate, normal rhythm Neurological exam: Present: alert, oriented X3 Skin exam: Present: warm, dry Course Vital Signs 08/19/23 18:36 Temperature 98.1 F Pulse Rate 77 Respiratory 18 Rate Blood Pressure 137/77 O2 Sat by Pulse 96 Oximetry Medical Decision Making - Medical Decision Making Was pt. sent in by a medical professional or institution (, [facility], INSURANCE INSPECTOR, urgent care, hospital, or jail...) When possible be specific @ -No Did you speak to anyone other than the patient for history (EMS, parent, family, police, friend...)? What history was obtained from this source @ -No Did you review nursing and triage notes (agree or disagree)? Why? @ -I reviewed and agree with nursing and triage notes Were old charts reviewed (outside hosp., previous admission, EMS record, old EKG, old radiological studies, urgent care reports/EKG's, jail records)? Report findings @ -No old charts were reviewed Differential Diagnosis (chest pain, altered mental status, abdominal pain women, abdominal pain men, vaginal bleeding, weakness, fever, dyspnea, syncope, headache, dizziness, GI bleed, back pain, seizure, CVA, palpatations, mental health, musculoskeletal)? @ -Barbara angina, ANUG, apical abscess. This is not meant to be an all- inclusive list. EKG interpreted by me (3pts min.). @ -None X-rays interpreted by me (1pt min.). @ -None done CT interpreted by me (1pt min.). @ -None done U/S interpreted by me (1pt. min.). @ -None done What testing was considered but not performed or refused? (CT, X-rays, U/S, labs)? Why? @ -None What meds were considered but not given or refused? Why? @ -None Did you discuss the management of the patient with other professionals (professionals i.e. , PA, INSURANCE INSPECTOR, lab, RT, psych nurse, social worker masters, public affairs manager, teacher, inspectors and regulatory officers, case picker)? Give summary @ -No Was smoking cessation discussed for >3mins.? @ -No Was critical care preformed (if so, how long)? @ -No Were there social determinants of health that impacted care today? How? (Homelessness, low income, unemployed, alcoholism, drug addiction, transportation, low edu. Level, literacy, decrease access to med. care, long term, rehab)? @ -No Was there de-escalation of care discussed even if they declined (Discuss DNR or withdrawal of care, Hospice)? DNR status @ -No What co-morbidities impacted this encounter? (DM, HTN, Smoking, COPD, CAD, Cancer, CVA, ARF, Chemo, Hep., AIDS, mental health diagnosis, sleep apnea, morbid obesity)? @ -None Was patient admitted / discharged? Hospital course, mention meds given and route, prescriptions, significant lab abnormalities, going to OR and other pertinent info. @ -Discharge A 33-year-old male presents to the ED due to dental pain ongoing for the last few months worsening over the past week. Exam does show multiple dental caries however no evidence of barbara's angina, anug, or double abscess. He should provided prescription for Augmentin and ibuprofen and advised follow-up with dentist. Discharged home in stable condition. Discussed return precautions with patient who verbalizes agreement. Undiagnosed new problem with uncertain prognosis? @ -No Drug Therapy requiring intensive monitoring for toxicity (Heparin, Nitro, Insulin, Cardizem)? @ -No Were any procedures done? @ -No Diagnosis/symptom? @ -Dental pain Acute, or Chronic, or Acute on Chronic? @ -Acute on chronic Uncomplicated (without systemic symptoms) or Complicated (systemic symptoms)? @ -Uncomplicated Side effects of treatment? @ -No Exacerbation, Progression, or Severe Exacerbation? @ -No Poses a threat to life or bodily function? How? (Chest pain, USA, MS, pneumonia, PE, COPD, DKA, ARF, appy, cholecystitis, CVA, Diverticulitis, Homicidal, Suicid al, threat to staff... and all critical care pts) @ -No Disposition Clinical Impression: Pain, dental Disposition: HOME SELF-CARE Condition: Good Instructions (If sedation given, give patient instructions): Toothache (ED) Additional Instructions: Please return to the Emergency Department if symptoms worsen or any other concerns. Please establish care with and dentist follow-up. Prescriptions: Amoxic-Pot Clav 875-125Mg [Augmentin 875-125] 1 tab PO Q12HR 7 Days #14 tab Ibuprofen 800 mg PO Q8H #30 tab Is patient prescribed a controlled substance at d/c from ED?: No Referrals: None,Stated [Primary Care Provider] - 1-2 days Time of Disposition: 20:10
[2023-08-19] MEDS ORDERED: IBUPROFEN 600 MG STARTER PACK 4 TAB BTL PO STA (20:10)
[2023-08-19] MEDS ORDERED: AMOXIC-POT CLAV 875MG STARTER PACK 2 TAB BTL PO STA (20:10)
[2023-08-19 20:23] VITALS: BP 144/92; PULSE 71
== END 2023-08-19 20:18 | disposition home or self-care (01) ==
LOC: EC 17:37
DX: K08.89 Other specified disorders of teeth and supporting structures (principal); F17.200 Nicotine dependence, unspecified, uncomplicated; F12.90 Cannabis use, unspecified, uncomplicated; F15.90 Other stimulant use, unspecified, uncomplicated; Z86.59 Personal history of other mental and behavioral disorders
CPT/HCPCS: 99282